=== PATIENT | female | born 1950 | race Caucasian/White ===

== ENCOUNTER 2020-09-09 06:58 | Day surgery (SDC) | payer MEDICARE ==
[2020-09-09] MEDS ORDERED: Propofol 200 MG/20 ML SDV ONE (07:31)
[2020-09-09] MEDS ORDERED: fentaNYL 100 MCG/2 ML SDV ONE (07:32)
[2020-09-09] MEDS ORDERED: Midazolam 1 MG/ML 2 ML SDV ONE (07:32)
[2020-09-09] MEDS ORDERED: Sodium Chloride 0.9% 1,000 ML IV SCH (07:45)
[2020-09-09] MEDS ORDERED: Docusate Sodium 100 MG Cap PO PRN (08:48)
[2020-09-09] MEDS ORDERED: Zolpidem 5 MG Tab PO PRN (08:48)
[2020-09-09] MEDS ORDERED: hydrOXYzine HCL 100 MG/2 ML SDV IM PRN (08:48)
[2020-09-09] MEDS ORDERED: Acetaminophen/HYDROcodone 325-5 MG Tab PO PRN (08:48)
[2020-09-09] MEDS ORDERED: Benzocaine/Cetylpyridinium/Menthol Lozenge MUCMEM PRN (08:48)
[2020-09-09 09:48] VITALS: BP 139/96; PULSE 79
--- NOTE | 2020-09-12 10:16 | OR ---
DATE OF PROCEDURE: 09/09/2020 SURGEON: Jhon Roldan MD PROCEDURE: Colonoscopy. FINDINGS: Descending colon polyp, approximately 5 mm, completely removed using cold biopsy forceps. COMPLICATIONS: None. RN TESTING: None. RISKS: Risks, benefits, alternatives, including but not limited to infection, bleeding, and perforation were explained to the patient who wished to proceed. PROCEDURE IN DETAIL: The patient was placed in left lateral decubitus position. Digital rectal exam was performed without abnormality. Scope was introduced and advanced atraumatically to the ileocecal valve. A photo was taken of this. Scope was brought back to the ascending, transverse, descending colon, and retroflexed. The aforementioned polyp was identified and completely removed using cold biopsy forceps most consistent with hyperplastic tissue. No abnormalities on retroflexion. Greater than 10 minutes was spent removing the scope. The patient tolerated the procedure well. Jhon Roldan MD /[id number]
== END 2020-09-09 10:30 | disposition home or self-care (01) ==
LOC: JP.SDS 06:58
PROVIDERS: ATTEND Surgery
DX: Z12.11 Encounter for screening for malignant neoplasm of colon (principal); K63.5 Polyp of colon; Z80.0 Family history of malignant neoplasm of digestive organs; I10 Essential (primary) hypertension
CPT/HCPCS: 45380; J2250; J2704; J3010; 88305; J7030